=== PATIENT | female | born 1970 | race Caucasian/White ===

== ENCOUNTER 2021-02-08 14:21 | Emergency (ER) | payer SELFPAY ==
[~2021-02-08 14:21] MED LIST: NO MEDS. REPORTED
--- NOTE | 2021-02-08 14:32 | NUR ---
called in ed waiting room.
--- NOTE | 2021-02-08 14:43 | NUR ---
called in ed waiting room. no response.
[2021-02-08] MEDS ORDERED: IBUP-1957 PO (22:51)
[2021-02-08] MEDS ORDERED: HYDR-3972 PO (22:51)
[2021-02-08] MEDS ORDERED: METO-295 PO (22:51)
== END 2021-02-08 14:47 | disposition left against medical advice (07) ==
LOC: ER 14:21
DX: R06.02 Shortness of breath (principal); Z53.21 Procedure and treatment not carried out due to patient leaving prior to being seen by health care provider

== ENCOUNTER 2021-02-08 19:54 | Emergency (ER) | payer SELFPAY ==
[~2021-02-08] VITALS: Ht 172.7 cm; Wt 70.3 kg
[2021-02-08] MEDS ORDERED: FAMOTIDINE/PF INJ 20 MG/2 ML VIAL IV ONE ×2 (20:30→20:31)
[2021-02-08] MEDS ORDERED: ONDANSETRON HCL/PF 4 MG/2 ML VIAL IVP ONE (20:30)
[2021-02-08] MEDS ORDERED: IV NS 0.9% 1,000 ML BAG IV ONE (20:30)
[2021-02-08] MEDS ORDERED: ONDANSETRON HCL/PF 4 MG/2 ML VIAL ONE (20:31)
[2021-02-08 20:40] LABS: BASOPHILS % (AUTO) 0.2 % (0.0-2.0); EOSINOPHILS % (AUTO) 0.1 % (0.0-6.0); HEMATOCRIT 37 % (33-45); HEMOGLOBIN 12.2 g/dL (11.5-14.8); LYMPHOCYTES # (AUTO) 1.1 /CMM (0.8-4.8); LYMPHOCYTES % (AUTO) 11.8 % (20.0-44.0); MEAN CORPUSCULAR HGB CONC 33 g/dl (31.0-36.0); MEAN CORPUSCULAR VOLUME 85 fL (82-100); MONOCYTES # (AUTO) 0.2 /CMM (0.1-1.30); NEUTROPHILS # (AUTO) 8.2 /CMM (1.8-8.9); NEUTROPHILS % (AUTO) 85.9 % (43.0-81.0); PLATELET COUNT (AUTO) 318 /CMM (150-450); RED BLOOD CELL COUNT(AUTO) 4.35 MIL/uL (4.0-5.2); WHITE BLOOD COUNT (AUTO) 9.5 K/uL (4.3-11.0)
[2021-02-08 20:51] LABS: CARBON DIOXIDE 23 mmol/L (21-32); CHLORIDE 104 mmol/L (98-107); CREATININE 0.8 mg/dL (0.6-1.3); GLUCOSE 111 mg/dL (74-106); POTASSIUM 3.6 mmol/L (3.5-5.1); SODIUM SERUM 138 mmol/L (136-145); UREA NITROGEN, BLOOD 13 mg/dL (7-18)
[2021-02-08 20:56] LABS: ALANINE AMINOTRANSFERASE 15 U/L (12-78); ALBUMIN 3.7 g/dL (3.4-5.0); ALKALINE PHOSPHATASE 52 U/L (46-116); ASPARTATE AMINOTRANSFERASE 16 U/L (15-37); BILIRUBIN,DIRECT 0.1 mg/dL (0.0-0.2); BILIRUBIN,TOTAL 0.6 mg/dL (0.2-1.0); LIPASE 97 U/L (73-393); TOTAL PROTEIN, SERUM 7.4 g/dL (6.4-8.2)
[2021-02-08] MEDS ORDERED: METOCLOPRAMIDE HCL 10 MG/2 ML VIAL ONE (21:49)
[2021-02-08] MEDS ORDERED: diphenhydrAMINE HCL 50 MG/ML VIAL ONE (21:49)
[2021-02-08] MEDS ORDERED: KETOROLAC TROMETHAMINE INJ 30 MG/ML VIAL ONE (21:49)
[2021-02-08] MEDS ORDERED: diphenhydrAMINE HCL 50 MG/ML VIAL IV ONE (22:00)
[2021-02-08] MEDS ORDERED: METOCLOPRAMIDE HCL 10 MG/2 ML VIAL IV ONE (22:00)
[2021-02-08] MEDS ORDERED: KETOROLAC TROMETHAMINE INJ 30 MG/ML VIAL IV ONE (22:00)
--- NOTE | 2021-02-08 22:17 | NUR ---
US TECH AT BED SIDE
[2021-02-08] MEDS ORDERED: METO-295 PO (22:51)
[2021-02-08] MEDS ORDERED: IBUP-1957 PO (22:51)
[2021-02-08] MEDS ORDERED: HYDR-3972 PO (22:51)
[2021-02-08] MEDS ORDERED: HYDROMORPHONE 1 MG/1 ML DISP.SYRIN ONE (22:55)
[2021-02-08] MEDS ORDERED: HYDROMORPHONE 1 MG/1 ML DISP.SYRIN IV ONE (23:00)
[2021-02-08] MEDS ORDERED: MORPHINE SULFATE INJ 2 MG/ML DISP.SYRIN IV ONE (23:00)
--- NOTE | 2021-02-08 23:21 | NUR ---
Patient discharged to home in stable condition. Written and verbal after care instructions given. Patient verbalizes understanding of instruction.IV removed. Catheter intact and site benign. Pressure and 4x4 applied to site. No bleeding noted. Pt ambulatory with a steady gait
[2021-02-08 23:23] VITALS: BP 111/64
== END 2021-02-08 23:24 | disposition home or self-care (01) ==
LOC: ER 19:54
DX: R10.84 Generalized abdominal pain (principal); R10.13 Epigastric pain; R11.2 Nausea with vomiting, unspecified; N94.6 Dysmenorrhea, unspecified; N83.202 Unspecified ovarian cyst, left side; Z90.89 Acquired absence of other organs; Z98.890 Other specified postprocedural states; Z79.899 Other long term (current) drug therapy
CPT/HCPCS: 36415; 71045; 74176; 76856; 80048; 80076; 83690; 84484; 85025; 93005 ×2; 96361; 96374; 96375; 99285; J1170; J1200; J1885; J2405; J2765; J3490; J7030 ×2